=== PATIENT | male | born 2000 | race Caucasian/White ===

== ENCOUNTER 2021-07-27 22:36 | Emergency (ER) | payer OTHER, SELFPAY ==
[2021-07-27 22:37] VITALS: BP 142/86; PULSE 133; RESP 18; TEMP 36.2; O2SAT 98; BMI 22.7
--- NOTE | 2021-07-28 01:11 | EX.ED.DYSGE1 ---
HPI History of Present Illness Chief Complaint: Allergic Reaction Informant: patient Narrative Narrative: Patient is a 21-year-old male. He is a student at [employer]. He is presenting for concern of allergic reaction. He developed a itchy rash on his arms and legs. He does admit to eating THC edibles last night and today. He notes when he arrived he felt nauseous but that is since resolved. He states he is feeling better and is ready to go back. He has no other complaints at this time. He does note he also has a new body wash and shampoo that he has been using. He denies any difficulty breathing or wheezing. He denies any swelling of his mouth. [facility] Medical History Marijuana abuse Home Medications NK 07/28/21 [History Last Taken Unknown] Allergy/AdvReac Type Severity Reaction Status Date / Time No Known Allergies Allergy Verified 07/27/21 22:40 Social History Smoking Status: Never smoker ROS ROS ED Constitutional Constitutional ED: Denies chills, fever(s) or malaise Eyes Eyes: Denies blurry vision or loss of vision ENT ENT ED: Denies rhinorrhea or sore throat Cardiovascular Cardiovascular: Denies chest pain or dizziness Respiratory/Chest Respiratory/Chest: Denies cough or dyspnea Gastrointestinal Gastrointestinal: Reports nausea; Denies abdominal pain or vomiting Genitourinary Genitourinary ED: Denies dysuria or hematuria Musculoskeletal Musculoskeletal: Denies arthralgias or myalgias Integumentary Denies rash or wounds Neurologic Neurologic: Denies focal weakness or headache(s) Psychiatric Psychiatric: Reports anxiety; Denies behavioral changes or depression EXAM Physical Exam Const Vital Signs: 07/27/21 22:37 Temperature 97.2 F L Temperature Source Temporal Pulse Rate 133 H Respiratory Rate 18 Blood Pressure 142/86 H Blood Pressure Mean 104 Pulse Ox 98 Oxygen Delivery Method Room Air Positive well nourished, well developed and no apparent distress General Appearance ED: well developed HEENT Reports normocephalic and moist mucous membranes HEENT Narrative: Normal oropharynx. Uvula is midline. No edema noted. atraumatic; Negative for tenderness Nose: no nasal discharge External Ear: external ears normal Mouth ED: Yes moist mucous membranes normal Eyes PERRL and EOMs intact bilaterally Neck full ROM and no meningeal signs Chest Wall inspection of chest normal Resp normal respiratory effort, normal air movement and clear to auscultation bilaterally Auscultation: Negative for wheezes Cardio regular rate and regular rhythm GI normal to inspection, nondistended, normoactive bowel sounds Extremity normal to inspection and full ROM Neuro oriented x3 and no focal motor deficits Psych mental status grossly normal and thought process normal Skin no wounds Skin Narrative: Faint scattered maculopapular rash most pronounced on the upper extremities but also on the lower extremities. Does not seem to involve the abdomen or chest. No petechia. No bullae appreciated. Negative Nikolsky sign. No rash on the palms of the hands. MDM MDM MDM Narrative Medical decision making narrative: Patient is evaluated for rash as well as anxiety. Patient did take it edible tonight which is the first time he is done that. Not clear if his reaction is to the edibles or some other generalized allergic reaction. He has no signs of anaphylaxis. [facility] He will continue take Benadryl as needed for itching and rash. He is counseled to avoid any THC products or edibles. Discharge Plan Triage Chief Complaint: Allergic Reaction ED Provider: Marquita Dillon Dx/Rx/DC Orders Clinical Impression: Adverse reaction to drug, Dermatitis Instructions: ED ADVERSE DRUG REACTION Allergic Prescriptions: No Action NK RF: 0 Primary Care Provider: NOT,DEFINED Referrals: NOT,DEFINED [Primary Care Provider] - Activity Restrictions/Additional Instructions: Take Benadryl as needed for itching and rash. Avoid any THC products Disposition Disposition: Home, Self Care
== END 2021-07-28 01:26 | disposition home or self-care (01) ==
LOC: ED 07-28 01:23
PROVIDERS: Emergency Provider Emergency Medicine
DX: L27.1 Localized skin eruption due to drugs and medicaments taken internally (principal); T40.7X5A Adverse effect of cannabis (derivatives), initial encounter
CPT/HCPCS: 99284

== ENCOUNTER → 2021-11-08 11:33 | Outpatient (CLI) | payer OTHER, SELFPAY | PROVIDERS: Visit Provider Family Medicine | DX: Z23 Encounter for immunization (principal) ==